=== PATIENT | female | born 1955 | race Caucasian/White ===

== ENCOUNTER 2016-09-30 15:16 | Outpatient (CLI) ==
--- NOTE | 2016-09-30 16:25 | DEXA ---
EXAM: DEXA scan. HISTORY: Post menopausal. COMPARISON: 01/11/2014. TECHNIQUE: [employer] [id number]. DEXA scan hips performed. Quality of the study is good. BMD is 0.75 grams per square centimeter. T-score -2.0. Z-score -1.3. DEXA scan lumbar spine not performed due to prior surgery. IMPRESSION: According to the World Health Organization classification, hip bone mineral density demonstrates ost eopenia, with increased fracture risk. Ten-year major osteoporotic fracture risk is 16.4%. Ten-yea r hip fracture risk is 2.2%. Since the prior study, there has been no significant interval change.
== END 2016-09-30 15:17 | disposition home or self-care (01) ==
LOC: RAD 15:16
PROVIDERS: ATTEND Internal Medicine
DX: Z78.0 Asymptomatic menopausal state (principal)

== ENCOUNTER 2017-04-22 09:56 | Outpatient (CLI) ==
[2017-04-22 10:47] LABS: BASOPHILS # (AUTO) 0.1 K/uL (0-0.2); BASOPHILS % (AUTO) 0.8 % (0.0-3.0); EOSINOPHILS # (AUTO) 0.5 K/ul (0.0-0.7); EOSINOPHILS % (AUTO) 7.9 % (0.0-7.0); HEMATOCRIT 39.4 % (37.0-47.0); HEMOGLOBIN 13.7 g/dl (12.0-16.0); IMMATURE GRANULOCYTE % (AUTO) 0.2 % (0.0-5.0); LYMPHOCYTES # (AUTO) 2.3 K/uL (0.60-3.4); LYMPHOCYTES % (AUTO) 37.1 (10.0-50.0); MEAN CORPUSCULAR HEMOGLOBIN 31.6 pg (27.0-31.0); MEAN CORPUSCULAR HGB CONC 34.8 (31.8-35.4); MONOCYTES # (AUTO) 0.4 K/uL (0.4-2.0); MONOCYTES % (AUTO) 6.8 (0-10); NEUTROPHILS # (AUTO) 2.9 K/ul (2.0-6.9); NEUTROPHILS % (AUTO) 47.2; PLATELET COUNT 191 10^3/uL (140-440); RED BLOOD COUNT 4.33 10^6/ul (4.20-5.40); WHITE BLOOD COUNT 6.06 K/ul (4.6-10.2)
[2017-04-22 11:22] LABS: ALBUMIN 4.1 g/dL (3.4-5.0); ALBUMIN/GLOBULIN RATIO 1.37; BILIRUBIN,TOTAL 0.57 mg/dL (0.00-1.20); BUN/CREATININE RATIO 23.75; CALCIUM 9.8 mg/dL (8.2-10.2); CREATININE 0.8 mg/dL (0.60-1.30); TOTAL PROTEIN 7.1 g/dL (5.8-8.1)
== END 2017-04-22 09:57 | disposition home or self-care (01) ==
LOC: LAB 09:56
PROVIDERS: ATTEND Internal Medicine
DX: E78.5 Hyperlipidemia, unspecified (principal); J44.9 Chronic obstructive pulmonary disease, unspecified; N18.9 Chronic kidney disease, unspecified; I10 Essential (primary) hypertension
CPT/HCPCS: 36415; 80053; 80061; 83036; 84443; 85025

== ENCOUNTER 2017-04-27 14:11 | Outpatient (CLI) | END 2017-04-27 14:12 | disposition home or self-care (01) | LOC: CAR 14:11 | PROVIDERS: ATTEND Internal Medicine | DX: G47.30 Sleep apnea, unspecified (principal) ==

== ENCOUNTER 2017-05-12 14:01 | Outpatient (CLI) | END 2017-05-12 14:02 | disposition home or self-care (01) | LOC: LAB 14:01 | PROVIDERS: ATTEND Internal Medicine | DX: R53.83 Other fatigue (principal); R40.0 Somnolence | CPT/HCPCS: 36415; 84443 ==

== ENCOUNTER 2017-05-30 08:22 | Outpatient (CLI) ==
[2017-05-30 09:03] LABS: BASOPHILS % (AUTO) 0.4 % (0.0-3.0); EOSINOPHILS # (AUTO) 0.1 K/ul (0.0-0.7); EOSINOPHILS % (AUTO) 0.9 % (0.0-7.0); HEMATOCRIT 40.4 % (37.0-47.0); HEMOGLOBIN 13.6 g/dl (12.0-16.0); IMMATURE GRANULOCYTE % (AUTO) 0.5 % (0.0-5.0); LYMPHOCYTES # (AUTO) 2.2 K/uL (0.60-3.4); MEAN CORPUSCULAR HEMOGLOBIN 30.4 pg (27.0-31.0); MEAN CORPUSCULAR HGB CONC 33.7 (31.8-35.4); MEAN CORPUSCULAR VOLUME 90.2 fl (81.0-99.0); MONOCYTES # (AUTO) 0.7 K/uL (0.4-2.0); MONOCYTES % (AUTO) 7.4 (0-10); NEUTROPHILS # (AUTO) 6.4 K/ul (2.0-6.9); NEUTROPHILS % (AUTO) 67.8; PLATELET COUNT 214 10^3/uL (140-440); RED BLOOD COUNT 4.48 10^6/ul (4.20-5.40); WHITE BLOOD COUNT 9.36 K/ul (4.6-10.2)
[2017-05-30 09:12] LABS: BILIRUBIN,URINE Negative (NEGATIVE); KETONES,URINE Negative (NEGATIVE); LEUKOCYTE ESTERASE ,URINE 2+ (NEGATIVE); NITRITE,URINE Negative (NEGATIVE); PROTEIN,URINE Trace (NEGATIVE); URINE, BLOOD Trace-lysed (NEGATIVE)
[2017-05-30 09:15] LABS: ADD URINE MICROSCOPIC YES
[2017-05-30 09:25] LABS: BACTERIA,URINE 1+ (NOT PRESENT)
[2017-05-30 09:44] LABS: ALBUMIN 3.4 g/dL (3.4-5.0); ALBUMIN/GLOBULIN RATIO 0.92; ANION GAP 15.5; BILIRUBIN,TOTAL 0.31 mg/dL (0.00-1.20); BUN/CREATININE RATIO 26.59; CHOL/HDL RATIO 3.4 (4.5-5.5); CREATININE 0.94 mg/dL (0.60-1.30); POTASSIUM 5.5 mmol/L (3.5-5.10); TOTAL PROTEIN 7.1 g/dL (5.8-8.1)
== END 2017-05-30 08:23 | disposition home or self-care (01) ==
LOC: LAB 08:22
PROVIDERS: ATTEND Family Medicine
DX: E78.5 Hyperlipidemia, unspecified (principal); E11.9 Type 2 diabetes mellitus without complications; I10 Essential (primary) hypertension; I25.10 Atherosclerotic heart disease of native coronary artery without angina pectoris; Z79.899 Other long term (current) drug therapy; J44.9 Chronic obstructive pulmonary disease, unspecified; N18.9 Chronic kidney disease, unspecified
CPT/HCPCS: 36415; 80053; 80061; 81001; 83036; 84443; 85025

== ENCOUNTER 2017-06-08 15:05 | Outpatient (CLI) | END 2017-06-08 15:06 | disposition home or self-care (01) | LOC: CAR 15:05 | PROVIDERS: ATTEND Internal Medicine Pulmonary Disease | DX: G47.33 Obstructive sleep apnea (adult) (pediatric) (principal) | CPT/HCPCS: 95811 ==

== ENCOUNTER 2017-06-13 14:20 | Outpatient (CLI) ==
[2017-06-13 15:08] LABS: ALANINE AMINOTRANSFERASE 35 U/L (12-78); ALBUMIN 3.9 g/dL (3.4-5.0); ALBUMIN/GLOBULIN RATIO 1.22; ALKALINE PHOSPHATASE 94 U/L (53-141); ANION GAP 12.4; ASPARTATE AMINO TRANSFERASE 22 U/L (15-37); BLOOD UREA NITROGEN 14 mg/dL (7-18); BUN/CREATININE RATIO 19.71; CALCIUM 9.8 mg/dL (8.2-10.2); CARBON DIOXIDE 29 mmol/L (23-31); CHLORIDE 103 mmol/L (98-107); CREATININE 0.71 mg/dL (0.60-1.30); GLUCOSE 91 mg/dL (82-115); POTASSIUM 4.4 mmol/L (3.5-5.10); SODIUM 140 mmol/L (136-145); TOTAL PROTEIN 7.1 g/dL (5.8-8.1)
[2017-06-13 15:09] LABS: BILIRUBIN,TOTAL < 0.3 mg/dL (0.00-1.20)
== END 2017-06-13 14:21 | disposition home or self-care (01) ==
LOC: LAB 14:20
PROVIDERS: ATTEND Internal Medicine
DX: R73.9 Hyperglycemia, unspecified (principal)
CPT/HCPCS: 36415; 80053; 83036

== ENCOUNTER 2018-02-03 15:09 | Outpatient (CLI) ==
--- NOTE | 2018-02-03 15:41 | DI ---
EXAM: Cervical spine three views HISTORY: Pain COMPARISON: None TECHNIQUE: Three-view cervical spine were performed FINDINGS: Patient status post anterior spinal fusion C5-C6. Hardware appears intact. Vertebral bod ies normal height. No fracture. Mild intervertebral space narrowing C3-C4. Moderate to severe int ervertebral disc space narrowing C4-C5 and this C6-C7. Multilevel facet and uncovertebral hypertrophy . Trace retrolisthesis C4 on C5. Prevertebral soft tissues appear normal. IMPRESSION: Anterior spinal fusion C5-C6. Chronic degenerative changes.
--- NOTE | 2018-02-03 15:44 | DI ---
EXAM: Thoracic spine three view HISTORY: Pain COMPARISON: None TECHNIQUE: Three views thoracic spine were performed FINDINGS: Mild leftward curvature lower thoracic/upper lumbar spine. Cervical spinal fusion hardwar e. Vertebral bodies normal in height vertebral bodies normal height. No fracture. No subluxation. Mild multilevel chronic discogenic degenerative disease with intervertebral space narrowing, marginal osteophyte formation. IMPRESSION: Mild chronic discogenic degenerative disease.
--- NOTE | 2018-02-03 15:49 | DI ---
Exam: Three views lumbar spine. Comparison: None available. Reason for exam: Pain. FINDINGS: No obvious vertebral body height loss is seen. There is a grade 1 anterior listhesis of L 4 on L5 with multilevel moderate to severe degenerative disease with osteophyte formation, interverte bral body disc space height narrowing and facet hypertrophy. There is relative preservation of the l umbar lordotic curve. Atherosclerotic disease is seen within the aorta. Impression: Grade 1 anterior listhesis of L4 on L5 with intervertebral body space height narrowing and osteophyte formation with facet hypertrophy. If clinical concern exists for radiculopathy or myelopathy, MRI co uld be performed for further characterization.
== END 2018-02-03 15:10 | disposition home or self-care (01) ==
LOC: LAB 15:09
PROVIDERS: ATTEND Internal Medicine
DX: I10 Essential (primary) hypertension (principal); E78.5 Hyperlipidemia, unspecified; N18.9 Chronic kidney disease, unspecified; J44.9 Chronic obstructive pulmonary disease, unspecified; M54.42 Lumbago with sciatica, left side; M54.41 Lumbago with sciatica, right side
CPT/HCPCS: 36415; 80053; 80061; 82306; 83036; 84443; 85025

== ENCOUNTER 2018-07-03 15:22 | Outpatient (CLI) | END 2018-07-03 15:23 | disposition home or self-care (01) | LOC: LAB 15:22 | PROVIDERS: ATTEND Internal Medicine | DX: E78.5 Hyperlipidemia, unspecified (principal); I10 Essential (primary) hypertension; J44.9 Chronic obstructive pulmonary disease, unspecified | CPT/HCPCS: 36415; 80053; 80061; 82607; 83036; 84443; 85025 ==

== ENCOUNTER 2018-11-06 13:44 | Outpatient (CLI) | END 2018-11-06 13:45 | disposition home or self-care (01) | LOC: CAR 13:44 | PROVIDERS: ATTEND Internal Medicine | DX: R06.02 Shortness of breath (principal); I10 Essential (primary) hypertension | CPT/HCPCS: 93005; 93010 ==

== ENCOUNTER 2018-11-09 13:18 | Outpatient (CLI) | END 2018-11-09 13:19 | disposition home or self-care (01) | LOC: CAR 13:18 | PROVIDERS: ATTEND Internal Medicine | DX: R06.02 Shortness of breath (principal) ==

== ENCOUNTER 2018-11-10 06:55 | Outpatient (CLI) ==
--- NOTE | 2018-11-13 10:21 | ECHO2D ---
Date of Exam: 11/10/2018 Ordering Physician: BO MAGALLANES MD Room #: OP Reason for Echo: SHORT OF BREATH, HYPERTENSION, SURGICAL CLEARANCE M-Mode Normal Adult Results LV Dimensions Normal Adult Results AoV Opening excursions >1.6 >1.6 LVEDD-base- 3.5-5.8 4.1 Ao root dimensions 2.0-3.7 3.0 LVESD-base- 3.1-4.6 L. Atrium dimensions 1.9-3.8 4.0 Post. Wall thickness 0.8-1.1 1.2 IV septum (thickness) 0.7-1.2 1.2 Post. Wall excursion 0.72-1.3 NORMAL Septal motion NORMAL Systolic motion R. Ventricular cavity 1.5-2.0 NORMAL LVEF 60% 59% Paradoxical septal wall motion NORMAL 2-D : BORDERLINE LEFT ATRIAL CAVITY ENLARGEMENT. 2-D M Mode Echocardiogram was performed using apical four chamber and left parasternal long and short axis views. Mitral, tricuspid and aortic valves appear to be normal. Contractility of the left ventricle seems to be normal, so is the cavity size. Left atrial cavity size and aortic root appear to be normal. There is no pericardial effusion. There is no thrombus noted in the left ventricular or left aortic cavity. No mitral valve prolapse noted. M-MODE: MV: NORMAL AV: NORMAL TV: NORMAL PV: NORMAL CHAMBER SIZE: BORDERLINE LEFT ATRIAL CAVITY ENLARGEMENT WALL MOTION: NORMAL PERICARDIUM: NORMAL INTERPRETATION: 1. BORDERLINE LEFT VENTRICULAR HYPERTROPHY WITH BORDERLINE LEFT ATRIAL CAVITY ENLARGEMENT 2. NORMAL VALVES 3. NORMAL LEFT VENTRICULAR CONTRACTILITY 4. NORMAL LEFT VENTRICLE SIZE MTDD
== END 2018-11-10 06:56 | disposition home or self-care (01) ==
LOC: CAR 06:55
PROVIDERS: ATTEND Internal Medicine
DX: R06.02 Shortness of breath (principal); I10 Essential (primary) hypertension

== ENCOUNTER 2018-11-13 06:50 | Outpatient (CLI) ==
[2018-11-13] MEDS ORDERED: DOBUTAMINE 500 MG-D5W 250 ML 250 ML IV ONE (07:28)
[2018-11-13] MEDS ORDERED: ATROPINE SULFATE PFS ONE (07:28)
--- NOTE | 2018-11-14 10:29 | DOBSTECHO ---
Date of Test: 11/13/2018 Ordering Physician: DR. MAGALLANES Smoking History : 10 PACK YEARS Reason for Examination: SURGICAL CLEARANCE, SHORTNESS OF BREATH, HYPERTENSION Current Medications: HYDROCODONE, LEXAPRO, GABAPENTIN, ZANTAC, VALIUM, CITRICEL , TUMERIC Height: 67" Weight: 163 Glaucoma: NO SaO2 98% AT REST Target Heart Rate: 134 / 158 S-T Segment Stage Time HR BPM BP MMHG Rhythm +/- Elevation Depression Symptoms Control Sitting 50 140/82 SR X NONE Dobutamine 250mg/D5W 5cmg/KG/mn 10cmg/KG/mn 3" 72 142/82 SR X NONE 15cmg/KG/mn 2" 87 162/64 SR X NONE 20cmg/KG/mn 2" 99 164/50 SR X NONE 25cmg/KG/mn 2" 100 160/50 SR X NONE 30cmg/KG/mn 2" 100 152/48 SR X 0.25MG ATROPINE GIVEN AT 11" 35cmg/KG/mn 00:47 131 140/56 SR X NONE 40cmg/KG/mn 6 MIN POST INFUSION z 106 132/76 SR X NONE 10 MIN POST INFUSION 12 MIN POST INFUSION z 82 68 136/82 SR X NONE DURATION OF INFUSION 11MINUTES AND 47 SECONDS MAXIMUM HEART RATE REACHED 130 Interpretation: 98% OXYGEN SATURATION WITH DOBUTAMINE INFUSION ON ROOM AIR 1. TEST POSITIVE FOR ISCHEMIC ST-T WAVE CHANGES 2. NO CHEST PAIN OR DISCOMFORT 3. NORMAL LEFT VENTRICULAR CONTRACTILITY RESTING AND WITH DOBUTAMINE INFUSION MTDD
--- NOTE | 2018-11-14 10:31 | ECHOSTRESS ---
Date of Exam: 11/13/2018 Ordering Physician: DR. MAGALLANES Reason for Echo: SURGICAL CLEARANCE, SHORTNESS OF BREATH, HYPERTENSION, DOBUTAMINE STRESS TEST POSITIVE FOR ISCHEMIA M-Mode Normal Adult Results LV Dimensions Normal Adult Results AoV Opening excursions >1.6 LVEDD-base- 3.5-5.8 Ao root dimensions 2.0-3.7 LVESD-base- 3.1-4.6 L. Atrium dimensions 1.9-3.8 Post. Wall thickness 0.8-1.1 IV septum (thickness) 0.7-1.2 Post. Wall excursion 0.72-1.3 Septal motion Systolic motion R. Ventricular cavity 1.5-2.0 LVEF 60% Paradoxical septal wall motion 2-D: NORMAL LEFT VENTRICULAR CONTRACTILITY RESTING AND WITH DOBUTAMINE INFUSION M-MODE: MV: AV: TV: PV: CHAMBER SIZE: WALL MOTION: NORMAL LEFT VENTRICULAR CONTRACTILITY RESTING AND WITH DOBUTAMINE INFUSION PERICARDIUM: INTERPRETATION: 1. NORMAL LEFT VENTRICULAR CONTRACTILITY RESTING AND WITH DOBUTAMINE INFUSION MTDD
== END 2018-11-13 06:51 | disposition home or self-care (01) ==
LOC: CAR 06:50
PROVIDERS: ATTEND Internal Medicine
DX: R06.02 Shortness of breath (principal); I10 Essential (primary) hypertension

== ENCOUNTER 2018-11-17 06:55 | Outpatient (CLI) ==
[2018-11-17] MEDS ORDERED: ATROPINE SULFATE PFS ONE (07:10)
[2018-11-17] MEDS ORDERED: DOBUTAMINE 500 MG-D5W 250 ML 250 ML IV ONE (07:10)
--- NOTE | 2018-11-17 10:04 | DOBSTECHST ---
Ordering Physician: BO MAGALLANES MD Date of Test: 11/17/2018 Reason for Examination: SHORT OF BREATH, POSITIVE STRESS ECHO, SURGICAL CLEARANCE Smoking History: 10 PK/YRS Height: 67" Weight: 153 LBS Current Medications: HYDROCODONE, LEXAPRO, GABAPENTIN, ZANTAC, VALIUM Target Heart Rate: 134/158 S-T Segment Stage Time HR BPM BP MMHG Rhythm +/- Elevation Depression Symptoms Control Sitting 42 160/94 SR X NONE Dobutamine 250mg/D5W 5cmg/KG/mn 10cmg/KG/mn 3 MIN 65 152/80 SR X NONE 15cmg/KG/mn 2 MIN 78 164/72 SR X NONE 20cmg/KG/mn 2 MIN 99 168/60 SR X NONE 25cmg/KG/mn 2 MIN 112 166/58 SR X 0.25 MG ATROPINE 30cmg/KG/mn 2 MIN 130 158/50 SR X NONE 35cmg/KG/mn 00:39 130 SR X NONE 40cmg/KG/mn 3 MIN POST INFUSION z 122 146/72 SR X NONE 9 MIN POST INFUSION 11 MIN POST INFUSION z 93 81 128/72 SR X NONE DURATION OF INFUSION 11:39 MAXIMUM HEART RATE REACHED 130 Interpretation: 98% OX SAT WITH DOBUTAMINE INFUSION OF 30 MCG/KG/MN 1. TEST POSITIVE FOR ISCHEMIC ST-T WAVE CHANGES 2. NO CHEST PAIN OR CHEST DISCOMFORT 3. SESTAMIBI TO FOLLOW MTDD
--- NOTE | 2018-11-17 10:59 | NM ---
Exam: Cardiac stress test with SPECT imaging. Reason for exam: Positive stress test with shortness of breath Comparison: None. Date of exam: 11/17/2018 Radiopharmaceutical: Rest: 12.9mCi Tc-99m Sestamibi i.v. Stress: 32.5mCi Tc-99m Sestamibi i.v. Dobutamine FINDINGS: Standard myocardial perfusion images were obtained after injection of technetium 99m sesta mibi under resting conditions The patient was then stressed with Dobutamine IV. Please see separate report by performing physician for details of the stress protocol Standard myocardial perfusion images were obtained after injection of technetium 99m sestamibi under stress conditions. Gated images were performed to evaluate left ventricular ejection fraction The stress perfusion images demonstrate uniform distribution of activity in the left ventricular myoc ardium. The rest perfusion images demonstrate uniform distribution of activity without evidence of significan t redistribution or ischemia. The left ventricular ejection fraction is calculated to be 65%. Impression: 1. Normal appearing left ventricular myocardial perfusion without evidence of significant ischemia 2. Left ventricular ejection fraction measures 65%.
== END 2018-11-17 06:56 | disposition home or self-care (01) ==
LOC: CAR 06:55
PROVIDERS: ATTEND Internal Medicine
DX: R06.02 Shortness of breath (principal); R94.39 Abnormal result of other cardiovascular function study
CPT/HCPCS: 93017; 93018

== ENCOUNTER 2019-02-24 12:39 | Emergency (ER) ==
[2019-02-24 12:53] VITALS: BP 146/73; TEMP 98.6; BMI 26.6
--- NOTE | 2019-02-24 14:01 | DI ---
Exam: Three views of the left foot. Miko: None available. Reason for exam: Injury. FINDINGS: There is a small avulsion fracture at the base of the left fifth metatarsal best seen on t he frontal view. Impression: Avulsion fracture of the left fifth metatarsal base.
--- NOTE | 2019-02-24 14:03 | DI ---
Exam: Three views of the left ankle. Comparison: None available. Reason for exam: Pain. FINDINGS: No acute fracture or malalignment. The talar dome appears intact. Degenerative findings are seen with osteophyte formation. Oblique images suggests avulsion fracture of the left fifth meta tarsal base. Impression: No obvious fracture is seen in the left ankle. Oblique images suggest an avulsion fracture of the left fifth metatarsal base. These findings are co rrelated with radiographic imaging of the foot performed on the same day.
--- NOTE | 2019-02-24 14:18 | ED.PDOC ---
General ED Provider: Dr. BRENDA TALBOT Chief Complaint: Ankle Pain/Injury Stated Complaint: LEFT FOOT PAIN Time Seen by Physician: 13:00 Mode of Arrival: Walk-In Information Source: Patient Exam Limitations: No limitations Primary Care Provider: BO MAGALLANES Nursing and Triage Documentation Reviewed and Agree: Yes Does patient meet sepsis criteria?: No If yes, has appropriate treatment been initiated?: No System Inflammatory Response Syndrome: Not Applicable Sepsis Protocol: For patient's 13 years and over: Temp is 96.8 and below OR 101 and greater Pulse >90 BPM Resp >20/minute Acutely Altered Mental Status Are patient's symptoms suggestive of a new infection, such as: -Pneumonia -Skin, Soft Tissue -Endocarditis -UTI -Bone, Joint Infection -Implantable Device -Acute Abdominal Infection -Wound Infection -Meningitis -Blood Stream Catheter Infection -Unknown Musculoskeletal Complaint Exam - Ankle/Foot Complaint/Exam Location of Injury: Reports: Left, Foot Mechanism of Injury: Reports: Trauma Onset/Duration: TODAY Symptoms Are: Reports: Still present Onset of Pain: Reports: Immediate Initial Severity: Moderate Current Severity: Moderate Location: Reports: Discrete Character: Reports: Aching Alleviating: Reports: Rest, Position Aggravating: Reports: Movement Able to Bear Weight: Yes Associated Signs and Symptoms: Reports: Swelling. Denies: Redness, Bruising, Fever, Weakness, Numbness, Tingling Gout Risk Factors: Reports: >40 years old Related Surgical History: Reports: None Lower Extremity Findings: Present: Swelling Achilles Tendon Abnormality: No Tenderness: Present: Midfoot Differential Diagnosis: Closed Fracture, Sprain, Strain Review of Systems - Review Of Systems Constitutional: Reports: No symptoms Eyes: Reports: No symptoms Ears, Nose, Mouth, Throat: Reports: No symptoms Respiratory: Reports: No symptoms Cardiac: Reports: No symptoms GI: Reports: No symptoms : Reports: No symptoms Musculoskeletal: Reports: Joint pain (FOOT LEFT ANKLE LEFT) Skin: Reports: No symptoms Neurological: Reports: No symptoms Endocrine: Reports: No symptoms Hematologic/Lymphatic: Reports: No symptoms All Other Systems: Reviewed and Negative Past Medical History - Past Medical History Previously Healthy: Yes Endocrine: Reports: None Cardiovascular: Reports: None Respiratory: Reports: None Hematological: Reports: None Gastrointestinal: Reports: None Genitourinary: Reports: None Neuro/Psych: Reports: None Musculoskeletal: Reports: None Cancer: Reports: None Last Menstrual Period: n/a - Surgical History General Surgical History: Reports: None - Family History Family History: Reports: None - Social History Smoking Status: Current every day smoker Hx Substance Use: (marijuanna) Alcohol Screening: Occasionally - Immunizations Tetanus Shot up to Date: No Physical Exam - Physical Exam Appearance: Well-appearing, No pain distress, Well-nourished Eyes: AV, EOMI, Conjunctiva clear ENT: Ears normal, Nose normal, Oropharynx normal Respiratory: Airway patent, Breath sounds clear, Breath sounds equal, Respirations nonlabored Cardiovascular: RRR, Pulses normal, No rub, No murmur GI/: Soft, Nontender, No masses, Bowel sounds normal, No Organomegaly Musculoskeletal: Limited ROM (LEFT FOOT) Skin: Warm, Dry, Normal color Neurological: Sensation intact, Motor intact, Reflexes intact, Cranial nerves intact, Alert, Oriented Psychiatric: Affect appropriate, Mood appropriate Critical Care Note - Critical Care Note Total Time (mins): 0 Course - Course Orders, Labs, Meds: Orders Category Date Time Status ANKLE, LEFT MIN 3 VIEWS Stat RADS 02/24/19 13:31 Completed FOOT, LEFT 3 VIEWS Stat RADS 02/24/19 13:31 Completed Vital Signs: Temp Pulse Resp BP Pulse Ox 02/24/19 12:40 98.6 F 77 18 146/73 H 97 Departure - Departure Time of Disposition: 14:16 Disposition: HOME SELF-CARE Discharge Problem: Foot fracture, left Qualifiers: Encounter type: initial encounter Fracture type: closed Qualified Code(s): S92.902A - Unspecified fracture of left foot, initial encounter for closed fracture Instructions: Toe Fracture (ED) Condition: Good Pt referred to PMD for follow-up: Yes IPMP verified?: No Additional Instructions: Please call your Family Physician as soon as possible to schedule a follow-up appointment.YOUR FOOT IS BROKEN SEE YOUR MD MIHAELA YOU MUST SEE A BONE DOCTOR SOON POSSIBLE , USE CRUTCHES NO WEIGHT BEARING UNTIL YOUR DOCTOR SEES YOU Allergies/Adverse Reactions: Allergies penicillin G Allergy (Severe, Verified 02/24/19 13:00) Hives hives. tape Adverse Reaction (Uncoded 02/24/19 13:01) Home Medications: Ambulatory Orders Diazepam [Valium] 10 mg PO BID 11/10/18 Gabapentin 600 mg PO TID 11/10/18 Hydrocodone/Acetaminophen [Hydrocodone-Acetamin 7.5-325] 1 each PO QID 11/10/18 Ranitidine HCl [Zantac] 300 mg PO BID 11/10/18 Escitalopram Oxalate [Lexapro] 20 mg PO DAILY 02/24/19 Disposition Discussed With: Patient, Family
== END 2019-02-24 15:15 | disposition home or self-care (01) ==
LOC: ED 12:39
DX: S92.902A Unspecified fracture of left foot, initial encounter for closed fracture (principal); W19.XXXA Unspecified fall, initial encounter; F17.210 Nicotine dependence, cigarettes, uncomplicated
CPT/HCPCS: 99283